=== PATIENT | female | born 1995 | race American Indian/Alaskan Native ===

== ENCOUNTER 2018-11-22 12:17 | Emergency (ER) | payer MEDICAID, OTHER ==
--- NOTE | 2018-11-22 13:01 | Emergency Department Report ---
Blank Doc - Documentation Documentation: This is a 23-year-old female that presents with vaginal discharge and vaginal irritation. This initial assessment/diagnostic orders/clinical plan/treatment(s) is/are subject to change based on patient's health status, clinical progression and re- assessment by fellow clinical providers in the ED. Further treatment and workup at subsequent clinical providers discretion. Patient/guardians urged not to elope from the ED as their condition may be serious if not clinically assessed and managed. Initial orders include: 1- Patient sent to [facility] for further evaluation and treatment 2- wet prep 3- UA
[2018-11-22 14:46] LABS: HCG Qualitative,Urine Negative (Negative)
[2018-11-22 14:52] LABS: Bilirubin,Urine NEG (Negative); Blood,Urine NEG (Negative); Color,Urine Yellow (Yellow); Mucus,Urine FEW /HPF; Protein,Urine <15 mg/dL mg/dL (Negative); Urobilinogen,Urine < 2.0 mg/dL (<2.0)
--- NOTE | 2018-11-22 17:58 | Emergency Department Report ---
ED Female HPI - General Chief complaint: Urogenital-Female Stated complaint: STOMACH PAIN,VAGINAL ITCHING/SWELLING Time Seen by Provider: 11/22/18 13:00 Source: patient Mode of arrival: Ambulatory Limitations: No Limitations - History of Present Illness Initial comments: This is a 23-year-old Citizen Of [place] female who presents to the emergency room with va ginal discharge, vaginal pruritus, and pelvic pain for one week. The patient states she was seen at [facility] and diagnosed with bacterial vaginitis and yeast infection. She was given 1 pill in the emergency room and told to purchase Monistat 7 [id number]. Patient states she's taken medication daily as instructed with no improvement of symptoms. Her last menstrual period was 10/25/2018, 0. She denies back pain, urinary frequency, urgency, hematuria, dysuria, or vaginal bleeding. MD Complaint: vaginal discharge, pelvic pain Onset/Timin -: week(s) Location: suprapubic Radiation: non-radiating Severity: mild Severity scale (0 -10): 3 Quality: cramping Consistency: intermittent Improves with: none Worsens with: none Are you Now?: No Last Menstrual Period: 10/25/18 EDC: 08/01/19 Associated Symptoms: vaginal discharge, abdominal pain. denies: vaginal bleeding, nausea/vomiting, fever/chills, headaches, loss of appetite, dysuria, hematuria, rash, seizure, shortness of breath, syncope, weakness - Related Data Sexually active: Yes : 0 Para: 0 A: 0 Previous Rx's Medication Instructions Recorded Last Taken Type metroNIDAZOLE [Flagyl TAB] 500 mg PO Q12HR #14 tab 11/22/18 Unknown Rx Allergies Allergy/AdvReac Type Severity Reaction Status Date / Time No Known Allergies Allergy Unverified 05/17/13 11:10 ED Review of Systems ROS: Stated complaint: STOMACH PAIN,VAGINAL ITCHING/SWELLING Other details as noted in HPI Constitutional: denies: chills, fever Respiratory: denies: cough, shortness of breath, wheezing Cardiovascular: denies: chest pain, palpitations Gastrointestinal: abdominal pain. denies: nausea, diarrhea Genitourinary: discharge. denies: urgency, dysuria Musculoskeletal: denies: back pain, joint swelling, arthralgia Skin: denies: rash, lesions Neurological: denies: headache, weakness, paresthesias Psychiatric: denies: anxiety, depression ED Past Medical Hx - Past Medical History Previous Medical History?: No - Surgical History Past Surgical History?: No - Social History Smoking Status: Never Smoker Substance Use Type: None - Medications Home Medications: Home Medications Medication Instructions Recorded Confirmed Last Taken Type metroNIDAZOLE [Flagyl TAB] 500 mg PO Q12HR #14 tab 11/22/18 Unknown Rx ED Physical Exam - General Limitations: No Limitations General appearance: alert, in no apparent distress - Respiratory Respiratory exam: Present: normal lung sounds bilaterally. Absent: respiratory distress - Cardiovascular Cardiovascular Exam: Present: regular rate, normal rhythm. Absent: systolic murmur, diastolic murmur, rubs, gallop - GI/Abdominal GI/Abdominal exam: Present: soft, normal bowel sounds. Absent: distended, tenderness, guarding, rebound, rigid - Back Exam Back exam: Absent: CVA tenderness (R), CVA tenderness (L) - Neurological Exam Neurological exam: Present: alert, oriented X3, normal gait - Psychiatric Psychiatric exam: Present: normal affect, normal mood - Skin Skin exam: Present: warm, dry, intact, normal color. Absent: rash ED Course Vital Signs 11/22/18 13:00 Temperature 98.2 F Pulse Rate 84 Respiratory 15 Rate Blood Pressure 120/64 O2 Sat by Pulse 100 Oximetry ED Medical Decision Making - Lab Data Lab Results 11/22/18 Range/Units Unknown Urine Color Yellow (Yellow) Urine Turbidity Hazy (Clear) Urine pH 8.0 H (5.0-7.0) Ur Specific [place] 1.016 (1.003-1.030) Urine Protein <15 mg/dl (Negative) mg/dL Urine Glucose (UA) Neg (Negative) mg/dL Urine Ketones Neg (Negative) mg/dL Urine Blood Neg (Negative) Urine Nitrite Neg (Negative) Ur Reducing Substances Not Reportable Urine Bilirubin Neg (Negative) Urine Ictotest Not Reportable Urine Urobilinogen < 2.0 (<2.0) mg/dL Ur Leukocyte Esterase Lg (Negative) Urine WBC (Auto) 3.0 (0.0-6.0) /HPF Urine RBC (Auto) 4.0 (0.0-6.0) /HPF U Epithel Cells (Auto) 5.0 (0-13.0) /HPF Urine Mucus Few /HPF Urine HCG, Qual Negative (Negative) - Medical Decision Making This is a 23-year-old -Citizen Of [place] female who presents with vaginal discharge and irritation for 1 week. Patient was examined by me. Vitals are stable and in no acute distress. A urinalysis, wet prep, gonorrhea and chlamydia was obtained via Pelvic exam. Urinalysis unremarkable, wet prep positive for clue cells, negative Trichomonas and yeast. Patient was seen at [facility] and treated for gonorrhea, chlamydia, and yeast. Start metronidazole 500 mg by mouth twice a day 7 days for bacterial vaginitis. Discharged home in stable condition. Discussed prevention options. F/U with PCP or Health Department. Critical care attestation.: If time is entered above; I have spent that time in minutes in the direct care of this critically ill patient, excluding procedure time. ED Disposition Clinical Impression: Vaginal discharge, Pelvic cramping, Bacterial vaginitis Disposition: TO HOME OR SELFCARE Is pt being admited?: No Does the pt Need Aspirin: No Condition: Stable Instructions: Bacterial Vaginosis (ED) Additional Instructions: Avoid drinking alcohol while taking antibiotics and for 24 hours after c ompletion. Continue safe sexual intercourse. Follow up with Primary Care Provider or health department. Prescriptions: metroNIDAZOLE [Flagyl TAB] 500 mg PO Q12HR #14 tab Referrals: FLORENCIO MENDOZA MD [Primary Care Provider] - 3-5 Days [facility] [Outside] - 3-5 Days [facility] [Outside] - 3-5 Days Forms: STI Treatment and Prevention Time of Disposition: 19:29
[2018-11-22 19:32] VITALS: BP 104/63
== END 2018-11-22 19:36 | disposition home or self-care (01) ==
LOC: ED 12:17
DX: N76.0 Acute vaginitis (principal); B96.89 Other specified bacterial agents as the cause of diseases classified elsewhere
CPT/HCPCS: 81001; 81025; 87210; 87591; 99283

== ENCOUNTER 2020-11-05 03:51 | Emergency (ER) | payer OTHER, MEDICAID ==
[2020-11-05 04:42] LABS: Basophils # (Auto) 0.1 K/mm3 (0.0-0.1); Basophils % (Auto) 0.3 % (0.0-1.8); Hematocrit 33.2 % (30.3-42.9); Hemoglobin 11.6 gm/dl (10.1-14.3); Lymphocytes # (Auto) 2.1 K/mm3 (1.2-5.4); Lymphocytes % (Auto) 12.7 % (13.4-35.0); Mean Corpuscular HGB Conc 35 % (30-34); Mean Corpuscular Volume 90 fl (79-97); Monocytes # (Auto) 1.5 K/mm3 (0.0-0.8); Monocytes % (Auto) 8.9 % (0.0-7.3); Platelet Count 300 K/mm3 (140-440); Red Blood Count 3.69 M/mm3 (3.65-5.03)
[2020-11-05 05:01] LABS: Alanine Aminotransferase 5 units/L (7-56); Albumin 3.6 g/dL (3.9-5); Blood Urea Nitrogen 4 mg/dL (7-17); Calcium 9.2 mg/dL (8.4-10.2); Hemolysis Index 0
[2020-11-05 05:03] LABS: BUN/Creatinine Ratio 10
[2020-11-05] MEDS ORDERED: SODIUM CHLORIDE 0.9% 1000 ML 1,000 ML IV ONE (05:35)
[2020-11-05] MEDS ORDERED: ACETAMINOPHEN 500 MG TAB PO ONE ×2 (05:36→08:17)
[2020-11-05] MEDS ORDERED: MORPHINE 4 MG/1 ML INJ IV ONE (06:12)
[2020-11-05] MEDS ORDERED: PROCHLORPERAZINE EDISYLATE 10 MG/2 ML VIAL IV ONE (06:12)
[2020-11-05] MEDS ORDERED: LIDOCAINE (1%) 10 MG/1 ML VIAL 20 ML MDV INFILTRATI ONE (06:12)
--- NOTE | 2020-11-05 06:27 | Emergency Department Report ---
ED General Adult HPI - General Chief complaint: Abdominal Pain Stated complaint: /VAGINAL CYST Source: patient Mode of arrival: Ambulatory Limitations: No Limitations - History of Present Illness Initial comments: Patient is a A2 25-year-old -[place] female who is approximately 11 weeks gestation and who presents to the ED with complaint of acute onset persi stent severe painful swelling right labia minora and right lower quadrant pain for the last 2 days. Patient also complains of intermittent nausea and vomiting but has attributed this to her condition. Patient denies fever, chills, dizziness, syncope, diarrhea, dysuria, urinary frequency and urgency, vaginal discharge, vaginal bleeding, low back pain, chest pain or shortness of breath or traumatic injury. MD Complaint: Right lower quadrant abdominal pain; painful labia minora and swelling -: Sudden, days(s) (2) Location: abdomen (RLQ), genitals (vagina) Radiation: abdomen (RLQ) Severity scale (0 -10): 8 Quality: burning, sharp Consistency: constant Improves with: none Worsens with: movement Associated Symptoms: denies other symptoms, malaise, rash (Swollen, severely painful fluctuant rash on the right labia minora). denies: confusion, chest pain, cough, diaphoresis, fever/chills, headaches, loss of appetite, nausea/vomiting, seizure, shortness of breath, syncope, weakness, other Treatments Prior to Arrival: none - Related Data Previous Rx's Medication Instructions Recorded Last Taken Type metroNIDAZOLE [Flagyl TAB] 500 mg PO Q12HR #14 tab 11/22/18 Unknown Rx Acetaminophen/Codeine [Tylenol 1 - 2 tab PO Q6H PRN #15 tab 11/05/20 Unknown Rx /Codeine # 3 tab] Clindamycin [Clindamycin CAP] 300 mg PO Q8HR #60 capsule 11/05/20 Unknown Rx Metoclopramide [Reglan] 10 mg PO Q6H PRN #30 tab 11/05/20 Unknown Rx cephALEXin [Keflex] 500 mg PO Q8HR #30 capsule 11/05/20 Unknown Rx Allergies Allergy/AdvReac Type Severity Reaction Status Date / Time No Known Allergies Allergy Unverified 05/17/13 11:10 ED Review of Systems ROS: Stated complaint: /VAGINAL CYST Other details as noted in HPI Constitutional: denies: chills, fever Eyes: denies: eye pain, eye discharge, vision change ENT: denies: ear pain, throat pain Respiratory: denies: cough, shortness of breath, wheezing Cardiovascular: denies: chest pain, palpitations Endocrine: no symptoms reported Gastrointestinal: abdominal pain (Right lower quadrant abdominal pain), nausea. denies: diarrhea Genitourinary: other (Swollen, painful right labia minora). denies: urgency, dysuria, discharge Musculoskeletal: denies: back pain, joint swelling, arthralgia Skin: denies: rash, lesions Neurological: denies: headache, weakness, paresthesias Psychiatric: denies: anxiety, depression Hematological/Lymphatic: denies: easy bleeding, easy bruising ED Past Medical Hx - Past Medical History Previous Medical History?: No - Surgical History Past Surgical History?: No - Social History Smoking Status: Never Smoker Substance Use Type: None - Medications Home Medications: Home Medications Medication Instructions Recorded Confirmed Last Taken Type metroNIDAZOLE [Flagyl TAB] 500 mg PO Q12HR #14 tab 11/22/18 Unknown Rx Acetaminophen/Codeine [Tylenol 1 - 2 tab PO Q6H PRN #15 tab 11/05/20 Unknown Rx /Codeine # 3 tab] Clindamycin [Clindamycin CAP] 300 mg PO Q8HR #60 capsule 11/05/20 Unknown Rx Metoclopramide [Reglan] 10 mg PO Q6H PRN #30 tab 11/05/20 Unknown Rx cephALEXin [Keflex] 500 mg PO Q8HR #30 capsule 11/05/20 Unknown Rx ED Physical Exam - General Limitations: No Limitations General appearance: alert, in no apparent distress - Head Head exam: Present: atraumatic, normocephalic, normal inspection - Eye Eye exam: Present: normal appearance, PERRL, EOMI Pupils: Present: normal accommodation - ENT ENT exam: Present: normal exam, normal orophraynx, mucous membranes moist, TM's normal bilaterally, normal external ear exam - Neck Neck exam: Present: normal inspection, full ROM. Absent: tenderness - Respiratory Respiratory exam: Present: normal lung sounds bilaterally. Absent: respiratory distress, wheezes, rales, rhonchi, chest wall tenderness, accessory muscle use, decreased breath sounds - Cardiovascular Cardiovascular Exam: Present: normal rhythm, tachycardia, normal heart sounds. Absent: systolic murmur, diastolic murmur, rubs, gallop - GI/Abdominal GI/Abdominal exam: Present: soft, tenderness (Palpable mild right lower quadrant and suprapubic tenderness), normal bowel sounds. Absent: guarding, rebound, hyperactive bowel sounds, hypoactive bowel sounds - External exam: Present: normal external exam, other (Female automatic mold sander, Ms. Burgess, the behavioral services tech present during the procedure). Absent: erythema, swelling, lesions, lacerations, bleeding Speculum exam: Present: normal speculum exam. Absent: vaginal discharge, vaginal bleeding Bi-manual exam: Present: other (Palpable severely swollen and tender right labia minora with fluctuance) - Extremities Exam Extremities exam: Present: normal inspection, full ROM, normal capillary refill - Back Exam Back exam: Present: normal inspection, full ROM. Absent: tenderness, CVA tenderness (R), CVA tenderness (L), muscle spasm, vertebral tenderness - Neurological Exam Neurological exam: Present: alert, oriented X3, CN II-XII intact, normal gait, reflexes normal - Psychiatric Psychiatric exam: Present: normal affect, normal mood - Skin Skin exam: Present: warm, dry, intact, normal color. Absent: rash ED Course Vital Signs 11/05/20 11/05/20 11/05/20 04:04 07:47 08:30 Temperature 98.6 F Pulse Rate 129 H 85 Respiratory 18 16 18 Rate Blood Pressure 121/70 119/76 O2 Sat by Pulse 98 99 Oximetry - I & D Right Vagina Type of Procedure: Simple Site: Right Bartholin cyst gland Blade Size: 11 I & D Procedure: betadine prep, sterile drapes applied, sterile dressing applied Progress: The right labium minora swollen abscess was cleaned thoroughly with normal saline and Betadine solution, a lidocaine 1% solution was infiltrated in the area for local anesthesia. When anesthesia was fully achieved, the area was incised and drained and copious thick purulent discharge drained from the wound. The wound was then debrided extensively with normal saline and Word catheter inserted into the wound and inflated. Patient tolerated the procedure well. ED Medical Decision Making - Lab Data Result diagrams: 11/05/20 04:21 11/05/20 04:21 - Radiology Data Radiology results: report reviewed, image reviewed [facility] [address] [place] [address] Ultrasound Report Signed Patient: NELY CRISTINA MR# : [id number] : 1995 Acct:[id number] Age/Sex: 25 / F ADM Date: 11/05/20 Loc: ED Attending Dr: Ordering Physician: JULI OSPINA Date of Service: 11/05/20 Procedure(s): US OB <= 14 weeks fetus Accession Number(s): [id number] cc: JULI OSPINA ULTRASOUND OBSTETRIC INDICATION / CLINICAL INFORMATION: pelvic pain. TECHNIQUE: Transabdominal. COMPARISON: None available. FINDINGS: GESTATIONAL SAC: Well-defined oval shape and intrauterine in location. YOLK SAC: No significant abnormality. EMBRYO/FETUS: No significant abnormality. - [place]-Rump Length = 4.5 cm = 11 weeks, 2 day(s). - Heart Rate, beats per minute (if present) = 177 ADNEXA: No significant abnormality. FREE FLUID: None. ADDITIONAL FINDINGS: None. IMPRESSION: 1. Single, living intrauterine with estimated sonographic age of 11 weeks, 2 day(s). Signer Name: Emir Amor MD Signed: 11/05/2020 6:32 AM Workstation Name: [id number] Transcribed By: WG Dictated By: Emir Amor MD Electronically Authenticated By: Emir Amor MD Signed Date/Time: 11/05/20631 DD/ 0 TD/TT: Print - Medical Decision Making This is a A2 25-year-old -[place] female who is approximately 11 weeks gestation and who presents to the ED with complaint of acute onset persistent severe painful swelling right labia minora and right lower quadrant pain for the last 2 days. Patient also complains of intermittent nausea and vomiting but has attributed this to her condition. In the ED, patient is alert and oriented x3 and is not in any distress. Patient however appears to be in significant pain, is afebrile but tachycardic in triage. Physical exam reveals swelling, severely tender right labia minora with fluctuance consistent with Bartholin cyst abscess. Lab test results were reviewed and showed acute leukocytosis of 16,600, hyponatremia 130 mmol/[place] [address]. Transvaginal ultrasound showed a single, living intrauterine with estimated sonographic age of 11 weeks, 2 day(s) with a heart rate of 177 bpm without any other observable sonographic abnormalities. Patient was treated for pain in the ED and also given clindamycin 900 mg IV x1. The right labium minora swollen abscess was cleaned thoroughly with normal saline and Betadine solution, a lidocaine 1% solution was infiltrated in the area for local anesthesia. When anesthesia was fully achieved, the area was incised and slade ined and copious thick purulent discharge drained from the wound. The wound was then debrided extensively with normal saline and Word catheter inserted into the wound and inflated. Patient tolerated the procedure well. On reevaluation, patient's pain is well controlled medications, tachycardia resolved and patient was discharged home on pain medications and antibiotics and advised to follow- up with her primary care physician or POLICE DEPARTMENT SECRETARY physician in 5 to 7 days for reevaluation. Patient was advised to return to the ED in 7 to 10 days to have the Word catheter removed. Patient was otherwise advised return to the ED immediately if symptoms get worse. - Differential Diagnosis Ectopic ; ovarian cyst; UTI; Bartholin cyst abscess Critical care attestation.: If time is entered above; I have spent that time in minutes in the direct care of this critically ill patient, excluding procedure time. ED Disposition Clinical Impression: Bartholin's gland abscess, Abdominal pain during in first trimester Disposition: DC-01 TO HOME OR SELFCARE Is pt being admited?: No Does the pt Need Aspirin: No Condition: Stable Instructions: Abdominal Pain During , [id number], Skin Abscess, [id number], Bartholin's Cyst, [id number], Abdominal Pain (ED) Additional Instructions: Lab test results were reviewed and showed significant infection characterized by acute leukocytosis of 16,600. The transvaginal ultrasound showed a live single IUP with a heart rate of 177 bpm and who is approximately 11 weeks and 2 days. Therefore take pain medications and antibiotics as advised, drink plenty of fluids and follow-up with your primary care physician or POLICE DEPARTMENT SECRETARY physician in 7 to 10 days for reevaluation. Return to the ED immediately if symptoms get worse. Otherwise return to the ED or to your primary care physician or POLICE DEPARTMENT SECRETARY physician in 8 to 10 days for removal of the Word catheter. Prescriptions: Clindamycin [Clindamycin CAP] 300 mg PO Q8HR #60 capsule cephALEXin [Keflex] 500 mg PO Q8HR #30 capsule Metoclopramide [Reglan] 10 mg PO Q6H PRN #30 tab PRN Reason: Nausea Acetaminophen/Codeine [Tylenol /Codeine # 3 tab] 1 - 2 tab PO Q6H PRN #15 tab PRN Reason: Severe pain Referrals: COLIN VILLAFUERTE MD [Staff Physician] - 3-5 Days Forms: Work/School Release Form(ED) Time of Disposition: 07:07 Print Language: BULGARIAN
--- NOTE | 2020-11-05 06:37 | Ultrasound Report ---
ULTRASOUND OBSTETRIC INDICATION / CLINICAL INFORMATION: pelvic pain. TECHNIQUE: Transabdominal. COMPARISON: None available. FINDINGS: GESTATIONAL SAC: Well-defined oval shape and intrauterine in location. YOLK SAC: No significant abnormality. EMBRYO/FETUS: No significant abnormality. - [place]-Rump Length = 4.5 cm = 11 weeks, 2 day(s). - Heart Rate, beats per minute (if present) = 177 ADNEXA: No significant abnormality. FREE FLUID: None. ADDITIONAL FINDINGS: None. IMPRESSION: 1. Single, living intrauterine with estimated sonographic age of 11 weeks, 2 day(s). Signer Name: Emir Amor MD Signed: 11/05/2020 6:32 AM Workstation Name: [id number]
[2020-11-05 08:01] VITALS: BP 119/76
== END 2020-11-05 08:35 | disposition home or self-care (01) ==
LOC: ED 03:51
DX: O23.591 Infection of other part of genital tract in pregnancy, first trimester (principal); O26.891 Other specified pregnancy related conditions, first trimester; R10.31 Right lower quadrant pain; Z3A.11 11 weeks gestation of pregnancy; Z79.2 Long term (current) use of antibiotics; Z79.899 Other long term (current) drug therapy
CPT/HCPCS: 36415; 56420; 76801; 80053; 84702; 85025; 96365; 96375; 99284; J0780; J2270; J7030